=== PATIENT | female | born 1990 | race Caucasian/White ===

== ENCOUNTER → 2016-06-24 | Outpatient (CLI) | payer BC ==
--- NOTE | 2016-06-24 16:34 | RADRPT ---
PROCEDURE: Left knee radiographs. CLINICAL INDICATION: Left knee pain. TECHNIQUE: Three views. Weight bearing. Frontal, lateral, and patellar view. COMPARISON: No prior studies are available for comparison. FINDINGS: There is no fracture or dislocation. The soft tissues are normal. Articular surfaces are intact. There is no lytic or blastic lesion. There is no radiopaque foreign body. IMPRESSION: 1. Normal images of the left knee. RPTAT: QQ .Sandeep Hdez MD, MD Date Time Electronically viewed and signed by .Sandeep Hdez MD, MD on 06/24/2016 16:34 .R/
--- NOTE | 2016-06-24 17:48 | HKNOTE ---
DATE OF SERVICE: 06/24/2016 MAIN COMPLAINT: Pain in the left knee following a snowboarding injury. HISTORY OF MAIN COMPLAINT: The patient is a 26-year-old female who went snowboarding this past week end for the first time in her life. She fell down and twisted her left knee. She also landed on th e left knee. She was able to get up and walk, but an hour or so later she had some swelling and colt n, and she could hardly walk. The pain gradually improved. She had an appointment to see me for the knee and she was whethe r to even come today because she was much improved. Note that she found me on the internet. PRESENT COMPLAINTS: The pain is mainly over the medial side of the knee. It is mild to moderate. The knee was swollen at first, but that is decreased now. There was some instability at first as we ll. She is unable to fully extend her knee. The pain is aggravated by walking, weightbearing and stair climbing. She does not get rest pain. S he does get some night pain. She has been taking Advil which seems to help a great deal. She does not have any history of problems with her back. On a level surface, currently she can walk as far a s she needs to, then occasionally she has pain while doing so. She sometimes limps. She does not u se a walking aid. She does not have a shoe lift. She can clip her toenails and tie her shoelaces. SPORTING ACTIVITIES: Kickboxing and snowboarding (not now). PAST ORTHOPEDIC HISTORY/PREVIOUS ORTHOPEDIC OPERATIONS: None. PRIOR CORTISONE INTAKE: None. ALCOHOL INTAKE: "1 or 2 drinks on the weekend." OTHER JOINT PROBLEMS: None. BLOOD TESTS FOR ARTHRITIS: None. PRIOR INJURIES TO HIPS OR KNEES: None. WORK STATUS: The patient works as a project management professional at a desk. She sits at a computer all day. PAST MEDICAL HISTORY: Negative. PAST SURGICAL HISTORY: Negative. MEDICATION ALLERGIES: NONE. MEDICATIONS: Aleve. FAMILY HISTORY: Father at 81 of diabetes and heart problems. Mother age 60 is alive; she has cancer. SYSTEMS REVIEW: Tingling sensations and numbness in her left arm. Otherwise, entirely negative. HABITS: The patient smokes marijuana daily. She takes an occasional alcoholic beverage on weekends . PHYSICAL EXAMINATION GENERAL: The patient is a fit-looking, youthful 26-year-old female. VITAL SIGNS: Height 5 feet 9 inches, weight 200 pounds. Blood pressure 135/70, temperature 98.2. GAIT: The patient's gait is slightly antalgic. She walks without a walking aid. HIPS: Both hips have full range of motion without pain. are normal. LEFT KNEE: Extension seems to be full, but is quite painful. 1+ effusion. Forced flexion is painf ul. 1+ tenderness over the medial joint line. IMAGING: Plain x-rays of the left knee obtained today at [facility] were reviewe d (3 views) were entirely normal, no signs of fracture or any other injury. DISCUSSION: The injury sustained is certainly the type of injury that can cause a meniscal tear. I n addition to this, she had some instability of the knee. MANAGEMENT: The patient is advised that she has similar symptoms that might suggest a torn meniscus . She seems to be on the mend and I have recommended that she avoid any strenuous activities for th e next 1 to 2 weeks. If her knee has not settled down completely within 2 weeks, she should call my hearing and speech assistant, Rosario, who will schedule an MRI scan of the knee for her. Dictated By: ANAM US/NGUYEN Conf#: [id number] DID#: [id number]
== END | disposition home or self-care (01) ==
LOC: HKI 15:35
DX: S83.207D Unspecified tear of unspecified meniscus, current injury, left knee, subsequent encounter (principal); V00.311D Fall from snowboard, subsequent encounter; F12.10 Cannabis abuse, uncomplicated; Z83.3 Family history of diabetes mellitus
CPT/HCPCS: 73562; G0463

== ENCOUNTER → 2016-08-19 | Outpatient (CLI) | payer BC ==
--- NOTE | 2016-08-19 17:51 | HKNOTE ---
DATE OF SERVICE: 08/19/2016 The patient's knee felt better just before she saw me at her last visit. After she saw me, the knee pain actually got worse. She decided to take me up on the offer to have an MRI scan of the knee. In the past few days, the knee pain is improved. Last week she had a sharp pain in the knee, and th en the knee became unstable, and she fell on the floor. Since then, the knee has become swollen. T he knee has given way approximately 15 times since she injured it, but she only fell on the ground o nce. PHYSICAL EXAMINATION: VITAL SIGNS: Height 5 feet 9 inches. Weight 200 pounds. Blood pressure 125/90, temperature 98.5. RIGHT KNEE: The right knee shows normal alignment. Active and passive extension is 0 degrees. Activ e and passive flexion is 135 degrees. The medial and lateral collateral ligaments and cruciate ligam ents are intact. Dayana test is negative. There is 1+ effusion. Marked tenderness over the medial joint line. There is no scarring, crepitus or cysts. The patella tracks normally. There is no tende rness on the articular surface of the patella or in the patellar groove. The Q angle is normal. IMAGING: The MRI scan of the right knee obtained on 08/13/[address] Augustine as show ing "Grade II sprain of the medial collateral ligament. Minimal diffuse chondromalacia of the lópez la. Bone marrow edema affecting the lateral femoral condyle consistent with a contusional injury. Small joint effusion." DISCUSSION: The patient's knee has been unstable, and this is almost pathognomonic for a torn menis cus or internal derangement. The patient is advised that the MRI scan has at least a 5% chance of m issing significant pathology. It is very likely that she still has a torn meniscus despite the nega tive MRI. Note that the actual pictures were reviewed today, and patient was given the disk back. She was also given a copy of the report. MANAGEMENT: The patient is being sent for a course of physical therapy to strengthen her quadriceps (isometric) and modalities as needed. If she continues to have significant symptoms 2 or 3 weeks f rom now, she should call my marketing assistant manager Rosario, who will arrange for her to have a new MRI scan of the knee with gadolinium. She will then be called with the result. Dictated By: ANAM US/NGUYEN Conf#: [id number] DID#: [id number]
== END | disposition home or self-care (01) ==
LOC: HKI 15:26
DX: M25.561 Pain in right knee (principal); M25.361 Other instability, right knee; M25.461 Effusion, right knee; Z91.81 History of falling
CPT/HCPCS: G0463